=== PATIENT | female | born 1985 | race Two or more races ===

== ENCOUNTER 2021-11-09 20:00 | Emergency (ER) | payer MEDICAID, OTHER ==
[2021-11-09] MEDS ORDERED: OXYCODONE W/ ACETAMINOPHEN 5/325MG TABLET PO ONE (22:00)
[2021-11-10] MEDS ORDERED: CIPR-173 PO (03:36)
[2021-11-10] MEDS ORDERED: CIPROFLOXACIN HCL 500 MG TAB PO ONE (03:45)
[2021-11-10 03:57] VITALS: BP 125/78
== END 2021-11-10 03:37 | disposition home or self-care (01) ==
LOC: ER 20:00
DX: H72.91 Unspecified perforation of tympanic membrane, right ear (principal)
CPT/HCPCS: 70450